=== PATIENT | male | born 1935 | race Caucasian/White ===

== ENCOUNTER 2018-05-24 13:30 | Outpatient (RCR) | payer MEDICARE, SELFPAY ==
--- NOTE | 2018-05-05 14:10 | HP.PTEVAL_ITS ---
Patient's Visit Information ANITA JONES is a 82 year old M referred to Physical Therapy by Meek Rebolledo MD with a diagnosis of bursitus of left hip,unilateral primary osteoartritis left hip. Date of Evaluation: 05/05/18 Physical Therapist: Elder Wasserman, PT, Cert MDT, OCS - Visit Plan Frequency: 2x /Week Duration: 4 Weeks Plan: FLEXABLITY LEFT HIP,PRE'S HIP,MODALITIES NEEDED - Subjective Findings: This 82 y/o male presents to physical therapy with left hip bursitis - ischial bursitis.Patient has had ledt hip pain for 3 months .Patient located left ishial tuberosity region. Agrraveting factors sitting. Symptoms not aggraveted with walking,standing,bending,stairs.X-rays - for DJD hip. Patient abld to sleep on side. Pateint denies parathesia/tingling.Bowel/bladder -. Coughing/sneezing-. Seen Dr Rebolledo recommended PT. Patient symptoms affects QOL. SOCIAL: . VOCATION: retired - Pain Left Buttocks Pain Intensity (Out of 10): 3 Pain Intensity Range: 10 - Objective POSTURE:mild foward posture. GAIT: mild foward posture reciprocal pattern. NEURO: intact. PALAPTION: tender ishial tuberosity. AROM: hip flexion 100 degrees,ER 45,IR 5 degrees. FLEXABLITY: hams mod tight,piriformis mod tight. SYMMTRIES: align. MMT:quads/hams 4/5,hip flexion 4-/5,hip ER/IR 4/5,hip abduction 4-/5,extension 3+/5 - Special Tests L Hip Scour: Negative L Hip Quadrant - Intraarticular Pathology: Negative L Hip RAKESH - Intraarticular Pathology: Negative L Hip Trendelenberg - Glut Medius: Negative L Hip Jennifer - IT Band: Negative - Goals Goal 1:: Independant with HEP Goal Time Frame: 4-6 Weeks Goal 2:: Decrease pain left buttuck region to improve function by 60% Goal Time Frame: 4-6 Weeks Goal 3:: Pateint increase strength of left hip by 1/2 grade to improve function Goal Time Frame: 4-6 Weeks Goal 4:: Patient to improve FES SCORE by 5-10 points to improve function. Goal Time Frame: 4-6 Weeks Goal 5:: To improve HIP ROM by 5 degrees or greater to improve function. Goal Time Frame: 4-6 Weeks - Rehabilitation Potential Physical Therapy Diagnosis: Patient has possible ichial bursitis left with pain ,dercrease ROM and strength thus benifit from skilled PT. Rehabilitation Potential: Good - Anticipated Interventions Patient/Client Instruction: Educate patient on: Condition, Plan of Care For the Purpose of:: To decrease pain, To increase ROM, To improve muscle p erformance and motor function, To improve ability to perform ADL's, To increase tolerance to activity/condition/position, To improve performance and independence with ADL's, To improve ability of physical actions for home/community/work/leisure, To improve health of tissue, To decrease soft tissue restriction, To increase flexibility/ROM, To improve ability to perform tasks related to life management Therapeutic Exercise to Include: Strength training, Endurance training, Passive ROM, Active ROM Comment: HIP For the Purpose of:: To decrease pain, To increase ROM, To improve muscle performance and motor function, To improve ability to perform ADL's, To increase tolerance to activity/condition/position, To improve ability of physical actions for home/community/work/leisure, To improve health of tissue, To decrease soft tissue restriction, To increase flexibility/ROM, To improve ability to perform tasks related to life management TENS: Yes IF ES: Yes Cryotherapy (ice pack, ice massage): Yes Thermo therapy (hot pack): Yes Ultrasound (thermal/non thermal): Yes For the Purpose of:: To decrease pain, To increase ROM, To improve nutrient delivery to tissue, To increase oxygenation perfusion, To improve health of tissue, To decrease soft tissue restriction Thank you for the opportunity to evaluate your patient. For Medicare and Medicare HMO plans, please review the plan of care and approve it. It will need to be FAXED BACK to us at [phone] for Medicare purposes. For Medicare only, by signing this I certify the plan of care. Please let me know if there are questions or concerns regarding this plan of care. Physician Signature: Date:
--- NOTE | 2018-05-24 14:16 | HP.PTDCSUM ---
HP - PT D/C Summary It has been my pleasure to treat ANITA JONES under orders from Meek Rebolledo MD, for the diagnosis of bursitus of left hip,unilateral primary osteoartritis left hip for a total of 7 visit(s). Discharge Date: Please see the following information for a summary of their discharge status. - Subjective Subjective: Doing well ..im alot better - Pain Left Buttocks Pain Intensity (Out of 10): 0 - Overall Improvement % Improvement: 75 - Objective Objective/Function: POSTURE: WFL. GAIT: NORMAL BERNABE. MMT: 4/5HIP/KNEE - Goals Goal 1:: Independant with HEP Goal Progress: Goal Met Goal 2:: Decrease pain left buttuck region to improve function by 60% Goal Progress: Goal Met Goal 3:: Pateint increase strength of left hip by 1/2 grade to improve function Goal Progress: Goal Met Goal 4:: Patient to improve FES SCORE by 5-10 points to improve function. Goal Progress: Goal Met Goal 5:: To improve HIP ROM by 5 degrees or greater to improve function. Goal Progress: Goal Met - Plan Plan: D/C - D/C Information If there are questions or concerns regarding this patient's physical therapy, please feel free to call me at [phone]. Thank you for the referral of this patient. Sincerely, Elder Wasserman PT, Cert MDT, OCS
== END 2018-05-24 19:00 | disposition home or self-care (01) ==
LOC: PT 13:30
PROVIDERS: Family Provider Family Medicine; PCP Family Medicine; Referring Provider Specialist; Visit Provider Specialist
DX: M70.72 Other bursitis of hip, left hip (principal); M16.12 Unilateral primary osteoarthritis, left hip
CPT/HCPCS: 97110; 97162

== ENCOUNTER 2018-10-21 12:20 | Inpatient (IN) | payer MEDICARE, SELFPAY ==
[2018-10-21 12:20] VITALS: BP 155/69; PULSE 88; RESP 16; TEMP 37.2; O2SAT 95; BMI 36.8
--- NOTE | 2018-10-21 12:36 | CT_ITS ---
STUDY: CT ABDOMEN AND PELVIS WITH CONTRAST REASON FOR EXAM: Male, 83 years old. 3 day history of abdominal pain. RADIATION DOSAGE (If Supplied By Facility): CTDIvol = ( 18.65 ) mGy, DLP = ( 1244.45 ) mGycm TECHNIQUE: Transaxial images were obtained from the dome of the diaphragm to the symphysis pubis with oral contrast. 100ml IV/Oral Isovue 300 was administered. Sagittal and coronal images were reconstructed. Individualized dose optimization techniques were used for this CT. COMPARISON: None. FINDINGS: Increased markings at the lung bases slightly more pronounced on the right side. This is suggestive of atelectasis. Coronary artery calcification. Dilated intrahepatic biliary ducts. Dilatation of the common bile duct. The common bile duct measures 1.5 cm in transverse dimension. There are surgical clips in the gallbladder fossa consistent with a prior cholecystectomy. Normal spleen. Normal pancreas. There are increased markings in the mesenteric fat at the level of the root of the mesentery. This is nonspecific and may represent inflammatory change. Normal bilateral adrenal glands. There is a 6.4 cm x 5.8 cm cyst in the upper midportion of the right kidney. This also evidence of a 1.2 Rubin's cyst in the upper pole of the right kidney. There is a 4.1 cm by 4.2 cm cyst in the lateral midportion of the left kidney. Normal visualized stomach. Normal small intestine. There are multiple colonic diverticula consistent with diverticulosis. The appendix is visualized and appears normal. There is diffuse atherosclerotic calcification of the abdominal aorta and its major visceral branches, without a demonstrated aneurysm. Normal inferior vena cava. Normal retroperitoneum. Normal urinary bladder. There are prostatic calcifications. Small bilateral inguinal hernias containing fat. There are diffuse degenerative changes of the visualized lumbar spine. Loss of height of the superior endplate of the L2 vertebrae. CT/Abdomen/Pelvis WITH Contrast IMPRESSION: Status post cholecystectomy. Intrahepatic and extrahepatic biliary ductal dilatation. Increased markings in the mesenteric fat at the level of the root of the mesentery suggestive of inflammatory changes. Bilateral renal cysts. Electronically Signed: Otoniel Lowery, at 15:01 EDT , Service support ,
[2018-10-21 13:17] LABS: Absolute Lymphocyte Count 0.72 X10^3/uL (0.83-4.51); Absolute Neutrophil Count 6.9 X10^3/uL (2.0-7.7); Basophil# 0.04 X10^3/uL; Basophil% 0.5 % (0-1); Eosinophil# 0.01 X10^3/uL; Eosinophils% 0.1 % (0-5); Hematocrit 40.5 % (40-54); Hemoglobin 13.6 g/dL (13.0-16.5); Lymphocyte # 0.72 X10^3/ul (4.0); Lymphocyte % 8.2 % (19-41); Mean Corp Hgb Conc 33.6 g/dL (32-36); Mean Corpuscular Hgb 31.4 pg (27.0-32.0); Mean Corpuscular Volume 93.5 fL (80-94); Mean Platelet Vol. 11.2 fl (6.2-12.0); Monocyte# 0.99 X10^3/uL; Monocyte% 11.3 % (0-10); NRBC Flagged by Analyzer 0 % (0-5); Neutrophil # 6.93 X10^3/uL (2.7-7.7); Neutrophil % 79.4 % (47-70); Platelet Count 155 K/mm3 (150-450); RBC Distribution Width CV 13.1 % (11.6-14.6); RBC Distribution Width SD 44.9 fl (35.1-43.9); Red Blood Count 4.33 M/mm3 (4.6-6.2); White Blood Count 8.7 K/mm3 (4.4-11.0)
[2018-10-21] MEDS: 0.9% Normal Saline 1,000 ML 125 ML IV (13:20)
[2018-10-21 13:32] LABS: ALB/GLOB Ratio 0.8 RATIO (0.9-2.4); AST(SGOT) 294 U/L (15-37); Alanine Aminotransfer ALT/SGPT 374 U/L (16-61); Albumin, Serum 3.1 g/dL (3.2-5.0); Alkaline Phosphatase 224 U/L (45-117); Anion Gap 7 (5-15); BUN 16 mg/dL (7-18); BUN/Creat Ratio 14.2 RATIO (10-20); Calcium,Total 8.6 mg/dL (8.5-10.1); Chloride 102 mmol/L (98-107); Creatinine, Serum 1.13 mg/dL (0.70-1.30); EST Glomerular Filtration Rate 66 mL/min (>60); Est Glom Filt Rate - Afr Amer 79 mL/min (>60); Estimated Creatinine Clearance 47.08 ml/min; Globulin 3.9 g/dL (2.2-4.2); Glucose 158 mg/dL (74-106); Lipase 66 U/L (73-393); Sodium Level 135 mmol/L (136-145)
[2018-10-21 13:58] LABS: Lactic Acid 1.4 mmol/L (0.4-2.0)
[2018-10-21 14:58] VITALS: BP 150/74; PULSE 73; RESP 18; O2SAT 94
[2018-10-21 15:20] LABS: Mucous, Urine 0 SEEN /hpf (<or=2+); Squamous Epithelial Cells - UA 0 SEEN /hpf (0-5); White Blood Cells 0 SEEN /hpf (0-5)
[2018-10-21 15:22] LABS: Color, Urine Yellow (Yellow); Glucose, Dipstick Normal (Normal); Ketone-Dipstick Negative (Negative); Leukocyte Esterase-Dipstick Negative /ul (Negative); Nitrite-Dipstick Negative (Negative); Occult Blood-Urine 25 /ul (Negative); Protein-Dipstick 15 mg/dl (Negative); Urine Bilirubin Dipstick Negative (Negative); Urine Clarity Clear (Clear); Urine Urobilinogen Normal (Normal)
[2018-10-21 15:28] LABS: Bacteria RARE /hpf (None Seen); Red Blood Cells-Urine 0-5 SEEN /hpf (0-5)
--- NOTE | 2018-10-21 15:31 | NURSING ---
DR HUIZAR CALLED BACK
--- NOTE | 2018-10-21 15:46 | ED.DCSUM_ITS ---
- ER Visit Summary Date of Service: 10/21/18 Chief Complaint: [Abdominal pain] History of Present Illness: The patient is a 83 M [presents to the emergency department complaint of abdominal pain for the last 5 to 6 days. Patient describes a dull intermittent discomfort. Patient rates his pain is a 4 5 out of 10. Said no nausea or vomiting. He denies any blood in stool or black tarry stool. His last bowel movement was 2 days ago. Patient does complain of some urinary frequency today. Patient thought he noticed maybe some blood in his urine today. Patient had decreased p.o. intake over the last 24 hours. He denies any documented fever but subjectively is felt hot. He has had prior cholecystectomy in the s.] Patient states that at times he will feel discomfort into his back. Physical Examination: [HEENT-PERRLA, EOMI. Cranial nerves II through XII grossly intact. TMs clear. Mucous membranes moist. No adenopathy. She has subtle scleral icterus noted. Cardiovascular-regular rate and rhythm without murmur or ectopy Lungs-clear to auscultation, chest wall stable without crepitus or subcu emphysema Abdomen-normoactive bowel sounds, soft. Patient has some mild diffuse tenderness on palpation. There is no rebound, rigidity, cranial signs. Skin exam-patient has jaundice of his head and trunk. Extremities-intact ?4, normal range of motion, normal pulses, atraumatic] Test Results: [CBC with differential obtained showed a white count of 8.7, hemoglobin 13.6, hematocrit 40, plates 135. Chemistries unremarkable. BUN 16 and creatinine 1.13. LFTs obtained showed a total bilirubin of 6.9, alk phos was 224, ALT 374, AST 294, and lipase was 66. CT scan of the abdomen pelvis obtained showed biliary duct dilatation that is intra-and extrahepatic. Patient also noted to have increased markings in the root of the mesentery.] Emergency Department Course and Treatment: [Case discussed with general surgeon Dr. Masters who will present to the emergency department to evaluate patient] Treatment Plan: [Admit for further work-up and evaluation of his abdominal pain and biliary obstruction] Disposition: [Admit] Impression: [Abdominal pain Jaundice Biliary ductal obstruction] This note was generated with Geeklistation software. It may contain incorrect words, spelling, and punctuation that were not noted in review of the chart prior to signing ED Disposition - Plan for ED Patient: Referrals: Zbigniew Marina MD [Primary Care Provider] -
--- NOTE | 2018-10-21 15:47 | NURSING ---
DR HUIZAR IN ER
--- NOTE | 2018-10-21 16:09 | NURSING ---
MED SURG BHUPENDRA LAW PAIN, JAUNDICE, BILIARY DUCTAL OBSTRUCTION
--- NOTE | 2018-10-21 16:13 | HP.PCM_ITS ---
Problem List (1) Obstructive jaundice Status: Acute History of Present Illness Date of Admission: 10/21/18 The patient is a 83 year old M who presents with 5-day history of right upper quadrant and epigastric pain radiating to the back. He reports he has gallbladder out about 10 years ago. He does not have any nausea or vomiting but he says the right upper quadrant pain has generalized itself and is not going away. He denies any fevers or chills. Past Medical History Allergies epinephrine Allergy (Verified 10/21/18 12:23) Shortness of breath Home Medications: Ambulatory Orders Medication Instructions Recorded NK 10/21/18 Surgical History: - - Laparoscopic cholecystectomy Lives: Spouse/ Significant Other Smoking Status: Former smoker - *Family History Maternal History Items: No pertinent history Review of Systems Constitutional: Denies: Anorexia, Chills, Fever HEENT: Denies: Difficulty Swallowing Cardiovascular: Denies: Chest Pain Respiratory: Denies: Cough, Shortness of Breath Gastrointestinal: Reports: Abdominal Pain, Constipation. Denies: Diarrhea, Hematemesis, Hematochezia, Nausea, Vomiting Genitourinary: Denies: Dysuria Musculoskeletal: Denies: Joint Tenderness Skin: Reports: Jaundice Neurological: Denies: Difficulty swallowing Psychiatric: Denies: Anxiety Hematologic/ Lymphatic: Denies: Anemia VTE Information - Inpt Only VTE Present on Admission: No VTE Mechan Device Prophylaxis: SCD's Patient Problems: Active and Suspected Problems Obstructive jaundice (Acute) - Physical Exam General: Alert, Oriented x3 HEENT: Normocephalic Oral: Moist Mucosa Neck: No JVD Lungs: Normal air movement Cardiovascular: Regular rate, Regular Rhythm Abdomen: Soft, Non-Distended, Tender - Tender right upper quadrant with no guarding or rebound Extremities: No clubbing Skin: No rashes Musculoskeletal: No Muscle Wasting Neurological: Cranial nerves II-XII grossly intact Psych/Mental Status: Normal Affect Vital Signs Temp Pulse Resp BP Pulse Ox 98.9 F 73 18 150/74 H 94 10/21/18 12:20 10/21/18 14:58 10/21/18 14:58 10/21/18 14:58 10/21/18 14:58 Oxygen Delivery Method Room Air Weight: 242 lb Body Mass Index (BMI) 36.8 Laboratory Tests Past 24 Hrs 10/21/18 10/21/18 10/21/18 13:00 13:00 13:19 WBC 8.7 RBC 4.33 L Hgb 13.6 Hct 40.5 MCV 93.5 MCH 31.4 MCHC 33.6 RDW Std Deviation 44.9 H RDW Coeff of Brionna 13.1 Plt Count 155 MPV 11.2 Immature Gran % (Auto) 0.500 Neut % (Auto) 79.4 H Lymph % (Auto) 8.2 L [place] % (Auto) 11.3 H Eos % (Auto) 0.1 Baso % (Auto) 0.5 Absolute Neuts (auto) 6.9 Absolute Lymphs (auto) 0.72 L Nucleated RBC % 0 Sodium 135 L Potassium 4.0 Chloride 102 Carbon Dioxide 26.0 Anion Gap 7 BUN 16 Creatinine 1.13 Estim Creat Clear Calc 47.08 Est GFR (MDRD) Af Amer 79 Est GFR (MDRD) Non-Af 66 BUN/Creatinine Ratio 14.2 Glucose 158 H Lactic Acid 1.4 Calcium 8.6 Total Bilirubin 6.90 H AST 294 H ALT 374 H Alkaline Phosphatase 224 H Total Protein 7.0 Albumin 3.1 L Globulin 3.9 Albumin/Globulin Ratio 0.8 L Lipase 66 L Urine Color Urine Clarity Urine pH Ur Specific [place] Urine Protein Urine Glucose (UA) Urine Ketones Urine Occult Blood Urine Nitrite Urine Bilirubin Urine Urobilinogen Ur Leukocyte Esterase Urine RBC Urine WBC Ur Squamous Epith Cells Urine Bacteria Urine Mucus 10/21/18 15:15 WBC RBC Hgb Hct MCV MCH MCHC RDW Std Deviation RDW Coeff of Brionna Plt Count MPV Immature Gran % (Auto) Neut % (Auto) Lymph % (Auto) [place] % (Auto) Eos % (Auto) Baso % (Auto) Absolute Neuts (auto) Absolute Lymphs (auto) Nucleated RBC % Sodium Potassium Chloride Carbon Dioxide Anion Gap BUN Creatinine Estim Creat Clear Calc Est GFR (MDRD) Af Amer Est GFR (MDRD) Non-Af BUN/Creatinine Ratio Glucose Lactic Acid Calcium Total Bilirubin AST ALT Alkaline Phosphatase Total Protein Albumin Globulin Albumin/Globulin Ratio Lipase Urine Color Yellow Urine Clarity Clear Urine pH 8.0 Ur Specific [place] 1.010 Urine Protein 15 H Urine Glucose (UA) Normal Urine Ketones Negative Urine Occult Blood 25 H Urine Nitrite Negative Urine Bilirubin Negative Urine Urobilinogen Normal Ur Leukocyte Esterase Negative Urine RBC 0-5 SEEN Urine WBC 0 SEEN Ur Squamous Epith Cells 0 SEEN Urine Bacteria RARE Urine Mucus 0 SEEN Clinical Impression(s) from Imaging Studies Abdomen/Pelvis CT 10/21/18 12:36 IMPRESSION: Status post cholecystectomy. Intrahepatic and extrahepatic biliary ductal dilatation. Increased markings in the mesenteric fat at the level of the root of the mesentery suggestive of inflammatory changes. Bilateral renal cysts. Electronically Signed: Otoniel Lowery, at 15:01 EDT , Service support , Assessment/Plan All Active Problems Obstructive jaundice (Acute) 83-year-old male with obstructive jaundice 1. The patient has elevated LFTs. His intra-and extrahepatic ducts are dilated on CT scan. Patient also has normal white count but has a left shift. Patient appears to have obstructive jaundice. No masses noted on CT. I recommend admission with IV antibiotics to prevent cholangitis. I also recommend ERCP to decompress biliary tree. I explained that this may be primary stones versus mass. 2. I explained ERCP in detail to the patient. I explained the risks including but not limited to bleeding, infection, perforation of the bile duct or bowel, pancreatitis. I also explained the possibility of having to place a stent. Patient understands risks and is willing to proceed with surgery tomorrow. Eric Masters MD Pager: [facility] [address] [place] [address], [address] [place] [address] Office:
--- NOTE | 2018-10-21 16:16 | ED.RN ---
DR BARFIELD IN AND PT TO BE ADMITTED TO HOSPITAL. ALL BELONGINGS PACKED AND READY.
[2018-10-21 16:54] VITALS: BMI 36.6
[2018-10-21 16:58] VITALS: BMI 36.7
--- NOTE | 2018-10-21 17:03 | ED.RN ---
PT OK'D FOR FLOOR AND TRANSFERRED TO [facility] VIA BED WITH ALL BELONGINGS IN GOOD CONDITION
[2018-10-21] MEDS: Polyethylene Glycol 3350 17 GM PACKET PO (17:11)
[2018-10-21] MEDS: Piperacil/Tazobactam 3.375 GM/50 ML ML IV ×2 (17:11→22:16)
[2018-10-21] MEDS: 0.9% Normal Saline 1,000 ML 100 ML IV (17:11)
[2018-10-21 17:29] VITALS: BP 145/59; PULSE 72; RESP 16; TEMP 36.6; O2SAT 94
[2018-10-21 22:00] VITALS: BP 155/71; PULSE 72; RESP 18; TEMP 37; O2SAT 95
[2018-10-21 22:15] VITALS: PULSE 73; RESP 18; O2SAT 95
[2018-10-22] VITALS (11 sets, daily range): BP systolic 137–161; BP diastolic 58–81; PULSE 60–75; RESP 14–18; TEMP 36.2–37.2; O2SAT 92–95; BMI 36.6; BMI 36.7
[2018-10-22] MEDS: 0.9% Normal Saline 1,000 ML 100 ML IV ×2 (03:00→17:02)
[2018-10-22 05:59] LABS: Absolute Lymphocyte Count 0.91 X10^3/uL (0.83-4.51); Absolute Neutrophil Count 3.9 X10^3/uL (2.0-7.7); Basophil# 0.04 X10^3/uL; Basophil% 0.7 % (0-1); Eosinophil# 0.13 X10^3/uL; Eosinophils% 2.2 % (0-5); Hematocrit 38.8 % (40-54); Lymphocyte # 0.91 X10^3/ul (4.0); Lymphocyte % 15.7 % (19-41); Mean Corp Hgb Conc 33.5 g/dL (32-36); Mean Corpuscular Hgb 31.7 pg (27.0-32.0); Mean Corpuscular Volume 94.6 fL (80-94); Mean Platelet Vol. 10.5 fl (6.2-12.0); Monocyte# 0.84 X10^3/uL; Monocyte% 14.5 % (0-10); NRBC Flagged by Analyzer 0 % (0-5); Neutrophil # 3.86 X10^3/uL (2.7-7.7); Neutrophil % 66.6 % (47-70); Platelet Count 138 K/mm3 (150-450); RBC Distribution Width CV 13.3 % (11.6-14.6); RBC Distribution Width SD 46.3 fl (35.1-43.9); White Blood Count 5.8 K/mm3 (4.4-11.0)
--- NOTE | 2018-10-22 06:00 | EKG12_ITS ---
Test Reason : PRE-OP Blood Pressure : / mmHG Vent. Rate : 058 BPM Atrial Rate : 058 BPM P-R Int : 182 ms QRS Dur : 108 ms QT Int : 416 ms P-R-T Axes : 047 017 038 degrees QTc Int : 408 ms Sinus bradycardia Incomplete right bundle branch block Confirmed by NERIS FUNES, ALESSANDRA ([id number]), editor trade journal KOFFI YANG ([id number]) on 10/26/2018 1:06:59 PM Referred By: DR HUIZAR Confirmed By:ALESSANDRA CORDON MD
[2018-10-22] MEDS: Piperacil/Tazobactam 3.375 GM/50 ML ML IV (06:11)
[2018-10-22 06:20] LABS: ALB/GLOB Ratio 0.8 RATIO (0.9-2.4); AST(SGOT) 152 U/L (15-37); Alanine Aminotransfer ALT/SGPT 259 U/L (16-61); Albumin, Serum 2.7 g/dL (3.2-5.0); Alkaline Phosphatase 188 U/L (45-117); Anion Gap 8 (5-15); BUN 14 mg/dL (7-18); Calcium,Total 8.3 mg/dL (8.5-10.1); Chloride 108 mmol/L (98-107); Creatinine, Serum 1.08 mg/dL (0.70-1.30); EST Glomerular Filtration Rate 69 mL/min (>60); Est Glom Filt Rate - Afr Amer 84 mL/min (>60); Estimated Creatinine Clearance 49.26 ml/min; Globulin 3.5 g/dL (2.2-4.2); Glucose 110 mg/dL (74-106); Potassium 3.7 mmol/L (3.5-5.1); Protein, Total 6.2 g/dL (6.4-8.2); Sodium Level 142 mmol/L (136-145)
--- NOTE | 2018-10-22 06:52 | MRI_ITS ---
STUDY: MR CHOLANGIOPANCREATOGRAPHY (MRCP) REASON FOR EXAM: Male, 83 years old. Obstructive jaundice, abdominal pain, abnormal laboratory values. TECHNIQUE: Multisequence multiplanar MRI of the abdomen without contrast with MRCP including 3-D volume rendered reformatted images. COMPARISON: CT abdomen and pelvis 10/21/2018 FINDINGS: The gallbladder is surgically absent. There is prominent intrahepatic or ductal ectasia, and prominent ectasia of the hepatic duct and common bile duct. Hepatic duct at the hilum 16.9 mm. Common bile duct at the pancreas up to 11 mm. There is a 7.8 mm calculus in the distalmost common bile duct just proximal to the sphincter. The pancreatic duct and common bile duct merge at the greater papilla. There is no apparent pancreatic ductal ectasia. There are multiple additional contiguous calculi within the hepatic duct and common bile duct over a length of 5.3 cm. These calculi measure up to 10 mm in diameter and do not occlude the duct. Hepatic parenchyma is unremarkable. There is moderate pancreatic atrophy. Unremarkable spleen. Normal adrenal glands. There are benign bilateral renal cysts. Stomach and evaluated portions of small and large bowel exhibits no acute process. Hazy induration within the small bowel mesentery, crist[place] mesentery, associated with halo sign and several tiny lymph nodes. None of the mesenteric lymph nodes are pathologically enlarged. There are no cicatrizing/retractile features of the mesentery. 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 MRI/MRCP Abdomen without Contrast IMPRESSION: Choledocholithiasis. The calculi within the duct proximal to the pancreas are nonobstructing. A solitary calculus in the distal common bile duct just proximal to the sphincter is at least partially obstructed. There is no apparent obstruction of the pancreatic duct. 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 Electronically Signed: Grant Ramirez MD at 10:46 EDT Tel , Service support ,
--- NOTE | 2018-10-22 07:50 | PCM.PN.SRG ---
Patient Problems: Active and Suspected Problems Obstructive jaundice (Acute) Subjective: Patient reports he is feeling better this morning. He has no pain today. - Physical Exam General: Alert, Oriented x3 Abdomen: Soft, Non Tender, Non-Distended Vital Signs Temp Pulse Resp BP Pulse Ox 98.3 F 74 18 155/75 H 94 10/22/18 03:35 10/22/18 03:35 10/22/18 03:35 10/22/18 03:35 10/22/18 03:35 Oxygen Delivery Method Room Air Weight: 242 lb Body Mass Index (BMI) 36.6 Intake and Output for Last 24 Hours 10/20/18 10/21/18 10/22/18 23:59 23:59 23:59 Intake Total 150 / 1024 1575 / 1575 Output Total 975 / 975 Balance 150 / 724 600 / 600 Laboratory Tests Past 24 Hrs 10/21/18 10/21/18 10/21/18 13:00 13:00 13:19 WBC 8.7 RBC 4.33 L Hgb 13.6 Hct 40.5 MCV 93.5 MCH 31.4 MCHC 33.6 RDW Std Deviation 44.9 H RDW Coeff of Brionna 13.1 Plt Count 155 MPV 11.2 Immature Gran % (Auto) 0.500 Neut % (Auto) 79.4 H Lymph % (Auto) 8.2 L [place] % (Auto) 11.3 H Eos % (Auto) 0.1 Baso % (Auto) 0.5 Absolute Neuts (auto) 6.9 Absolute Lymphs (auto) 0.72 L Nucleated RBC % 0 Sodium 135 L Potassium 4.0 Chloride 102 Carbon Dioxide 26.0 Anion Gap 7 BUN 16 Creatinine 1.13 Estim Creat Clear Calc 47.08 Est GFR (MDRD) Af Amer 79 Est GFR (MDRD) Non-Af 66 BUN/Creatinine Ratio 14.2 Glucose 158 H Lactic Acid 1.4 Calcium 8.6 Total Bilirubin 6.90 H AST 294 H ALT 374 H Alkaline Phosphatase 224 H Total Protein 7.0 Albumin 3.1 L Globulin 3.9 Albumin/Globulin Ratio 0.8 L Lipase 66 L Urine Color Urine Clarity Urine pH Ur Specific [place] Urine Protein Urine Glucose (UA) Urine Ketones Urine Occult Blood Urine Nitrite Urine Bilirubin Urine Urobilinogen Ur Leukocyte Esterase Urine RBC Urine WBC Ur Squamous Epith Cells Urine Bacteria Urine Mucus 10/21/18 10/22/18 10/22/18 15:15 05:35 05:35 WBC 5.8 RBC 4.10 L Hgb 13.0 Hct 38.8 L MCV 94.6 H MCH 31.7 MCHC 33.5 RDW Std Deviation 46.3 H RDW Coeff of Brionna 13.3 Plt Count 138 L MPV 10.5 Immature Gran % (Auto) 0.300 Neut % (Auto) 66.6 Lymph % (Auto) 15.7 L [place] % (Auto) 14.5 H Eos % (Auto) 2.2 Baso % (Auto) 0.7 Absolute Neuts (auto) 3.9 Absolute Lymphs (auto) 0.91 Nucleated RBC % 0 Sodium 142 Potassium 3.7 Chloride 108 H Carbon Dioxide 26.0 Anion Gap 8 BUN 14 Creatinine 1.08 Estim Creat Clear Calc 49.26 Est GFR (MDRD) Af Amer 84 Est GFR (MDRD) Non-Af 69 BUN/Creatinine Ratio 13.0 Glucose 110 H Lactic Acid Calcium 8.3 L Total Bilirubin 5.50 H AST 152 H ALT 259 H Alkaline Phosphatase 188 H Total Protein 6.2 L Albumin 2.7 L Globulin 3.5 Albumin/Globulin Ratio 0.8 L Lipase Urine Color Yellow Urine Clarity Clear Urine pH 8.0 Ur Specific [place] 1.010 Urine Protein 15 H Urine Glucose (UA) Normal Urine Ketones Negative Urine Occult Blood 25 H Urine Nitrite Negative Urine Bilirubin Negative Urine Urobilinogen Normal Ur Leukocyte Esterase Negative Urine RBC 0-5 SEEN Urine WBC 0 SEEN Ur Squamous Epith Cells 0 SEEN Urine Bacteria RARE Urine Mucus 0 SEEN Medical Necessity - Tobacco Use Smoking Status: Former smoker Tobacco Use: Cigarettes Assessment/Plan All Active Problems Obstructive jaundice (Acute) 83-year-old male with obstructive jaundice 1. Patient is feeling better this morning and his LFTs have decreased. I informed the patient of this and given the option of proceeding with ERCP or performing an MRCP as his LFTs did improve. As he is feeling better he would like to pursue MRCP first. I will order this and keep the patient n.p.o. If it does show a stone or cause of obstruction I will take him for ERCP when possible. Eric Masters MD Pager: [facility] [address] [place] [address], [address] [place] [phone] Office:
--- NOTE | 2018-10-22 10:45 | CASEMGMT ---
RN GOOD Face to Face with patient for initial transition planning/care coordination assessment. RN CM introduced self and role at [facility]. Patient sitting in chair, alert and oriented. Patient willing to participate in assessment and is able to answer all questions appropriately. Care providers, pharmacy, and demographics verified. Patient wishes to discharge home, denies need for home health at this time. Patient states he has no further needs or concerns at this time. CM to follow for discharge planning needs that may arise. PCP: [facility] Specialists: [facility] Service Coordinator Preferred Pharmacy: [facility] Insurance: [employer] [facility] Prescription Benefit: yes Living Will/HPOA: yes, Mira Hancock LNOK: Living Arrangements: Patient lives with in 2 story home. Patient states he is independent and able to navigate stairs. Transportation: self/ DME/HHC: Patient has raised toilet. Denies previous HHC Disposition Plan: Patient to discharge home with family support and follow-up plans in place. Maryann TORRE, RN, CM
--- NOTE | 2018-10-22 11:01 | PN_ITS ---
Progress Note I reviewed the MRCP. It shows large stones in the common bile duct. We will plan on ERCP this afternoon. I discussed this with his son as well. Eric Masters MD Pager: [facility] [address] [place] [address] [address] [place] [address] Office:
--- NOTE | 2018-10-22 11:01 | PCM.PN.BLA ---
Progress Note I reviewed the MRCP. It shows large stones in the common bile duct. We will plan on ERCP this afternoon. I discussed this with his son as well. Eric Masters MD Pager: [facility] [address] [place] [address] [address] [place] [address] Office:
--- NOTE | 2018-10-22 14:29 | NURSING ---
PT LEFT FOR SURGERY
--- NOTE | 2018-10-22 14:57 | CHAPLAIN ---
Type of Pastoral Visit _x__ Initial Visit ___ Follow-up Visit ___ On-call Visit ___ General Patient Visit ___ Spiritual Assessment ___ Family Conference ___ Bereavement ___ Rapid Response ___ Code Blue ___ Other (describe below) Pastoral Care Referral From _x__ Patient ___ Family ___ Nurse ___ Physician ___ Boat Motor Mechanic ___ Plate Sensitizer ___ Other (describe below) Sacrament/Intervention _x__ Active listening ___ Anointing ___ Scientology ___ Bereavement ___ Communion _x__ [place] exploration ___ ___ Life review _x__ Prayer ___ Reconciliation ___ Sacrament of Sick _x__ Supportive presence ___ Wedding ___ Other (describe below) Pastoral Comments patient is minutes away from going down for surgery; spouse is with patient in room; prayer offered and welcomed
--- NOTE | 2018-10-22 15:53 | OP.ENDO_ITS ---
10/22/2018 Zbigniew Marina [address] [place] [address] Re : ERCP procedure for Jamal Hancock Dear Dr. Marina This procedure was performed on Monday, October 22, 2018. My impressions and recommendations are as follows: Impressions : - Benign-appearing esophageal stenosis. - Multiple partially obstructing oozing duodenal ulcers with adherent clot. There is no evidence of perforation. Recommendations : - Transfer patient to another hospital. - Repeat ERCP. My findings are described in the full procedure note, which is enclosed. If I can be of further assistance, please feel free to contact me at Doctor phone number(s): , Work: . Sincerely, Eric Masters MD 10/22/2018 3:52:41 PM This report has been signed electronically.
--- NOTE | 2018-10-22 15:56 | PN_ITS ---
Progress Note I attempted ERCP this afternoon. I performed an EGD first. 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 I placed the EGD scope into the duodenum the patient did have several bleeding ulcers in the duodenum. He also had a strictured area just distal to this. The EGD scope was removed and the side-viewing scope was placed into the esophagus but I was unable to insert the scope into the stomach. The distal esophagus was very tortuous and strictured. I removed the side-viewing scope and placed the EG scope and once more and was able to traverse the GE junction very easily. I tried once more with a side-viewing scope and still was unable to enter the stomach. The scope was removed and the procedure was aborted. The patient will be transferred to tertiary care center for repeat ERCP by computer operations analyst. Eric Masters MD Pager:
--- NOTE | 2018-10-22 16:02 | PN_ITS ---
Progress Note I spoke to Dr. Walls at [facility] and he is excepting the patient and will perform repeat ERCP tomorrow. Eric Masters MD Pager: [facility] [address] [place] [address], [address] [place] [address] Office:
--- NOTE | 2018-10-22 16:02 | PCM.PN.BLA ---
Progress Note I spoke to Dr. Walls at [facility] and he is excepting the patient and will perform repeat ERCP tomorrow. Eric Masters MD Pager: [facility] [address] [place] [address], [address] [place] [address] Office:
--- NOTE | 2018-10-22 22:20 | NURSING ---
Called pt's to notify her of transfer per pt's request.
--- NOTE | 2018-10-22 23:17 | NURSING ---
Handoff given to Karen Hager RN from [facility]. Notified pt's also
== END 2018-10-22 23:17 | disposition short-term general hospital (02) | DRG 444 ==
LOC: ED 16:05 → MS3 10-22 07:42
PROVIDERS: Admitting Provider Surgery; Emergency Provider Emergency Medicine; Family Provider Family Medicine; PCP Family Medicine; Visit Provider Surgery
PROC: 0DJ08ZZ Inspection of Upper Intestinal Tract, Via Natural or Artificial Opening Endoscopic (ICD-10-PCS; CPT 43260; principal; 2018-10-22 14:15)
DX: K80.51 Calculus of bile duct without cholangitis or cholecystitis with obstruction (principal); K26.4 Chronic or unspecified duodenal ulcer with hemorrhage; K22.2 Esophageal obstruction; Z90.49 Acquired absence of other specified parts of digestive tract; Z53.8 Procedure and treatment not carried out for other reasons
CPT/HCPCS: 36415; 74177; 74181; 80053; 81001; 83605; 83690; 85025; 85652; 86140; 93005; 99282; J7030; Q9967; A4216

== ENCOUNTER → 2018-10-21 | Outpatient (CLI) | payer MEDICARE, SELFPAY ==
[2018-10-21 11:23] LABS: Erythrocyte Sedimentation Rate 41 mm/hr (0-20)
[2018-10-21 11:31] LABS: Lipase 73 U/L (73-393)
== END | disposition home or self-care (01) ==
LOC: LABSPEC 11:14
PROVIDERS: Family Provider Family Medicine; PCP Family Medicine; Referring Provider Nurse Practitioner Family; Visit Provider Nurse Practitioner Family
DX: R10.84 Generalized abdominal pain (principal)
CPT/HCPCS: 83690; 85652; 86140

== ENCOUNTER 2020-04-20 13:33 | Outpatient (RCR) | payer MEDICARE, SELFPAY ==
[2018-10-22 14:25] VITALS: BMI 36.6
== END 2020-04-20 23:59 ==
LOC: IMMUN 13:33
PROVIDERS: PCP Family Medicine; Referring Provider Family Medicine; Visit Provider Family Medicine
DX: Z23 Encounter for immunization (principal)
CPT/HCPCS: 0011A; 0012A